=== PATIENT | female | born 1980 | race Caucasian/White ===

== ENCOUNTER 2017-10-05 14:15 | Emergency (ER) | payer MEDICAID ==
[~2017-10-05] VITALS: Wt 68.2 kg
[~2017-10-05 14:15] MED LIST: ADDERALL XR30 MG PO; AMOXICILLIN875 MG PO; BUPROPION PO; DIFLUCAN150 M1 PO; LEXAPRO20 MG PO; ULTRAM50 M1 PO
[2017-10-05] MEDS ORDERED: PRENATAL 19 TA1 EACH PO (14:41)
[2017-10-05] MEDS ORDERED: CHILDREN'S ASPI81 M1 PO (14:41)
[2017-10-05] MEDS ORDERED: KEFLEX250 M1 PO (14:41)
[2017-10-05 17:12] VITALS: BP 116/70
== END 2017-10-05 15:22 | disposition short-term general hospital (02) ==
LOC: ED 14:15
DX: O60.03 Preterm labor without delivery, third trimester (principal); Z3A.33 33 weeks gestation of pregnancy; O30.003 Twin pregnancy, unspecified number of placenta and unspecified number of amniotic sacs, third trimester; O99.613 Diseases of the digestive system complicating pregnancy, third trimester; K04.7 Periapical abscess without sinus; Z79.82 Long term (current) use of aspirin